=== PATIENT | female | born 1985 | race Caucasian/White ===

== ENCOUNTER 2019-05-10 08:46 | Day surgery (SDC) | payer MEDICAID ==
[~2019-05-10] VITALS: Ht 154.9 cm; Wt 68.6 kg
[~2019-05-10 08:46] MED LIST: LEXAPRO10 MG PO; ROPINIROLE HCL0.5 MG PO
[2019-05-10 09:00] LABS: HEMATOCRIT 41.1 % (36.0-48.0); HEMOGLOBIN 14.7 g/dL (12-16); LYMPHOCYTES 22.1 % (15-50); MCH 32.2 pg (26.0-34.0); MCHC 35.8 g/dL (31.0-37.0); MCV 89.9 fL (80.0-100.0); MEAN PLATELET VOLUME 10.2 fL (7.4-10.4); NEUTROPHILS 67.5 % (40-80); PLATELET COUNT 241 10x3/uL (130-400); RBC 4.57 10x6/uL (4.00-5.40); RDW 13.2 % (11.5-14.5); WBC 6.8 10x3/uL (4.8-10.8)
[2019-05-10 09:05] LABS: CALC OSMOLALITY 278 mosm/kg (275-300); CALCIUM 9.4 mg/dL (8.5-10.1); CARBON DIOXIDE 28.5 mmol/L (21.0-32.0); CHLORIDE - SERUM 105 mmol/L (98-107); CREATININE - SERUM 0.8 mg/dL (0.6-1.3); GLUCOSE 87 mg/dL (74-106); POTASSIUM - SERUM 4.1 mmol/L (3.5-5.1); SODIUM 141 mmol/L (136-145); UREA NITROGEN 10 mg/dL (7-18); eGFR NON AFRICAN AMERICAN 87 mL/min (90-120)
[2019-05-10 10:05] VITALS: BP 108/67; Ht 154.9 cm; Wt 68.6 kg
[2019-05-10 10:07] LABS: HCG URINE NEGATIVE (NEGATIVE)
[2019-05-10] MEDS ORDERED: HYDROCODON-ACE1 EA10 PO (11:18)
--- NOTE | 2019-05-10 15:16 | NUR ---
1450-up to bathroom and voids 1500-iv d/c and patient dresses. 1510-discharge instructions reviewed. 1515-d/c home via wheelchair.
--- NOTE | 2019-05-21 13:37 | OP ---
PATIENT NAME: MINOO SHEN MEDICAL RECORD: [id number] :85 LOCATION:D.OPS ADMISSION DATE: SURGEON: DINO JONES MD DATE OF OPERATION: 05/10/2019 PREOPERATIVE DIAGNOSES: 1. Gallstones. 2. Anxiety. POSTOPERATIVE DIAGNOSES: 1. Gallstones. 2. Anxiety. PROCEDURE: Laparoscopic cholecystectomy. SURGEON: Dino Jones MD REPORT OF PROCEDURE: The patient's abdomen was prepped and draped in sterile fashion. A cutdown was made on the inferior aspect of the umbilicus, 0 Vicryls were placed in the fascia bilaterally and the fascia was incised with 15-blade. I then bluntly entered the peritoneal cavity and placed a 12-mm Osvaldo port. Under direct visualization, a 5-mm trocar was placed in the epigastrium and 2 more 5-mm trocars were placed in the right subcostal region. The gallbladder was grasped and elevated. The cystic artery and cystic duct were dissected free and these were clipped proximally and distally and ligated in standard fashion. The gallbladder was then taken off the liver bed using electrocautery and placed into the right upper quadrant. Any bleeding from the liver bed was then treated with electrocautery. At this point, the ports and insufflation were then removed and the gallbladder was taken out through the umbilicus. The umbilical fascia was closed with interrupted 0 Vicryls times 3. The wounds were then irrigated out with normal saline and infused with 10 mL of 0.25% Marcaine with epinephrine. The skin incisions were all closed with subcutaneous 5-0 Monocryl and dressed appropriately. COMPLICATIONS: None. CONDITION: Stable. ANESTHESIA: General endotracheal and local. BLOOD LOSS: Minimal. TRANSINT:[id number] Voice Confirmation ID: [id number] DOCUMENT ID: [id number] DINO JONES MD at 1337 CC: BLANKA LAGUERRE [id number] DICTATION DATE: 05/10/19 1121 [facility] WORKER: 05/10/19 1133 [facility] 05/10/19 [id number] [place] [address]
== END 2019-05-10 15:15 | disposition home or self-care (01) ==
LOC: D.OPS 08:46 → D.PAN 11:00 → D.OPS 15:15
PROVIDERS: ATTEND Surgery
DX: K80.20 Calculus of gallbladder without cholecystitis without obstruction (principal); F41.9 Anxiety disorder, unspecified

== ENCOUNTER → 2019-12-10 07:40 | Outpatient (CLI) | payer MEDICAID ==
[2019-05-10 10:05] VITALS: BMI 28.6
[~2019-12-10 07:40] MED LIST changes: +HYDROCODON-ACE1 EA10 PO
[2019-12-10 08:37] LABS: HCG SERUM NEGATIVE (NEGATIVE)
== END | disposition home or self-care (01) ==
LOC: D.NM 07:40
PROVIDERS: ATTEND Family Medicine
DX: E04.9 Nontoxic goiter, unspecified (principal)